=== PATIENT | female | born 2000 ===

== ENCOUNTER 2024-04-15 17:08 | Emergency (ER) | payer OTHER ==
[~2024-04-15] VITALS: Ht 165.1 cm; Wt 97.5 kg
[2024-04-15 18:13] VITALS: BP 116/58
--- OUTSIDE RECORDS SUMMARY | 2024-04-15 19:34 | XMS ---
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 No recent Security Events currently on file CRITERIA MET - [facility] - 2 Visits in 30 Days CARE PROVIDERS MALKA GRAY Community Health Worker 11/14/2020-Current PHONE: [phone] -, [facility] Dentist: Pipe Insulator Current [place] PHONE: [phone] -Dick- Dentist: Pipe Insulator Current [facility] PHONE: [phone] [facility] WORKERS CLINIC [facility] ([facility]) [facility] PHONE: [phone] Foster has no Care Guidelines for this patient. EJodyDJody VISIT COUNT (12 MO.) [address] [place] [address] [facility] [place] TOTAL 6 NOTE: Visits indicate total known visits. ED/UCC VISIT TRACKING (12 MO.) 04/15/2024 17:09 [facility] [place] TYPE: Emergency COMPLAINT: - ABDOMNIAL PAIN 2024 16:16 [facility] [place] TYPE: Emergency DIAGNOSES: - Other stimulant abuse, uncomplicated - Unspecified psychosis not due to a substance or known physiological condition - PSYCHOSIS 02/22/2024 02:42 [facility] [place] TYPE: Emergency DIAGNOSES: - Corneal disorder due to contact lens, right eye - FB IN EYE 01/30/2024 13:52 [email or web address] TYPE: Emergency DIAGNOSES: - Local infection of the skin and subcutaneous tissue, unspecified - Opioid abuse, uncomplicated - Other stimulant abuse, uncomplicated - OD 07/09/2023 23:57 [facility] OR TYPE: Emergency DIAGNOSES: - Strain of muscle, fascia and tendon of lower back, initial encounter - BACK PAIN 06/25/2023 20:45 [facility] [place] TYPE: Emergency DIAGNOSES: - Acute gastritis without bleeding - Tobacco use - Abdominal Pain, [place] INPATIENT VISIT TRACKING (12 MO.) No inpatient visits to display in this time frame [id number]
== END 2024-04-15 18:14 | disposition home or self-care (01) ==
LOC: ED 17:08
DX: Z02.89 Encounter for other administrative examinations (principal); R10.9 Unspecified abdominal pain; Z88.8 Allergy status to other drugs, medicaments and biological substances; Z88.6 Allergy status to analgesic agent
CPT/HCPCS: 84703; 99284

== ENCOUNTER 2024-05-10 20:06 | Emergency (ER) | payer OTHER ==
[~2024-05-10] VITALS: Ht 165.1 cm; Wt 94.3 kg
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
[2024-05-10] MEDS ORDERED: BRIXADI8 MG/0.16 (20:21)
[2024-05-10 20:56] LABS: BILIRUBIN, URINE NEGATIVE (negative); BLOOD/HGB, URINE NEGATIVE (Negative); KETONE, URINE NEGATIVE (Negative); LEUK ESTERASE, URINE NEGATIVE (negative); NITRITE, URINE NEGATIVE (negative); PH, URINE 5.5 (5-7)
[2024-05-10 20:57] LABS: HEMOGLOBIN 14.1 g/dL (12.0-18.0); RDW 15.6 (10.5-15.0)
[2024-05-10 20:59] LABS: BASOPHILS 0.7 % (0-2); EOSINOPHILS 0.7 % (0-6); HEMATOCRIT 42.2 % (35.0-50.0); MCH 28.2 (27-36); MCHC 33.5 g/dl (30-36); MCV 84.3 fl (81-99); MONOCYTES 4.6 % (0-12); PLATELET COUNT 271 K/uL (140-440)
[2024-05-10 21:11] LABS: ALBUMIN/GLOBULIN RATIO 1.05 (1.1-2.4); ANION GAP 12.4 (7-21); BILIRUBIN, TOTAL 0.9 ng/dL (0.2-1.0); BUN/CREATININE RATIO 11.49 (6.0-28.6); CALCIUM 9.3 mg/dL (8.5-10.1); CREATININE, SERUM 0.87 mg/dL (0.55-1.02); POTASSIUM 3.4 mmol/L (3.5-5.1); PROTEIN, TOTAL 7.8 g/dL (6.4-8.2)
[2024-05-10 21:12] LABS: AMPHETAMINES, URINE NEGATIVE (NEGATIVE); BARBITURATES, URINE NEGATIVE (NEGATIVE); BENZODIAZEPINE, URINE NEGATIVE (NEGATIVE); BUPRENORPHINE, URINE POSITIVE (NEGATIVE); CANNABINOID, URINE NEGATIVE (NEGATIVE); COCAINE, URINE NEGATIVE (NEGATIVE); ECSTASY, URINE NEGATIVE (NEGATIVE); FENTANYL, URINE POSITIVE (NEGATIVE); METHADONE, URINE NEGATIVE (NEGATIVE); OPIATES, URINE NEGATIVE (NEGATIVE); OXYCODONE, URINE NEGATIVE (NEGATIVE); PHENCYCLIDINE, URINE NEGATIVE (NEGATIVE)
[2024-05-10 22:24] LABS: N. GONORRRHOEAE BY PCR NOT DETECTED (NOT DETECT)
[2024-05-10 22:28] VITALS: BP 114/83
[2024-05-12 16:28] LABS: HEPATITIS B SURFACE ANTIBODY 91.65 IU/L (())
[2024-05-13 10:32] LABS: HIV 1,2 COMBO ANTIGEN/ANTIBODY Negative (Negative)
[2024-05-13 12:32] LABS: HEPATITIS BE ANTIBODY Negative (Negative)
== END 2024-05-10 22:30 | disposition home or self-care (01) ==
LOC: ED 20:06
PROVIDERS: Internal Medicine
DX: T76.21XA Adult sexual abuse, suspected, initial encounter (principal); Z88.6 Allergy status to analgesic agent; Z79.899 Other long term (current) drug therapy
CPT/HCPCS: 36415; 80053; 80307; 81003; 84703; 85025; 86706; 86707; 99284

== ENCOUNTER 2024-06-01 02:14 | Emergency (ER) | payer OTHER ==
[~2024-06-01] VITALS: Ht 165.1 cm; Wt 98.0 kg
[~2024-06-01 02:14] MED LIST: BRIXADI8 MG/0.16
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
[2024-06-01] MEDS ORDERED: ZYPREXA10 MG PO (02:59)
[2024-06-01] MEDS ORDERED: HALOPERIDOL LACTATE 5 MG/ML VIAL IM ONE ×2 (04:15→08:30)
[2024-06-01] MEDS ORDERED: diphenhydrAMINE HCL 50 MG/ML VIAL IM ONE ×2 (04:15→08:30)
[2024-06-01] MEDS ORDERED: LORazepam 2 MG/ML VIAL IM ONE ×2 (04:15→08:30)
[2024-06-01 04:25] LABS: BILIRUBIN, URINE POSITIVE (negative); BLOOD/HGB, URINE NEGATIVE (Negative); KETONE, URINE >=80 (Negative); LEUK ESTERASE, URINE NEGATIVE (negative); NITRITE, URINE NEGATIVE (negative); PH, URINE 5.5 (5-7)
[2024-06-01 04:32] LABS: BASOPHILS 0.6 % (0-2); EOSINOPHILS 0.7 % (0-6); HEMATOCRIT 40.8 % (35.0-50.0); HEMOGLOBIN 14.1 g/dL (12.0-18.0); MCH 29.1 (27-36); MCHC 34.5 g/dl (30-36); MCV 84.5 fl (81-99); MONOCYTES 7.2 % (0-12); NEUTROPHILS 48.5 % (39-80); PLATELET COUNT 314 K/uL (140-440); RBC 4.83 M/ul (4.3-5.7)
[2024-06-01 04:37] LABS: AMPHETAMINES, URINE NEGATIVE (NEGATIVE); BARBITURATES, URINE NEGATIVE (NEGATIVE); BENZODIAZEPINE, URINE NEGATIVE (NEGATIVE); BUPRENORPHINE, URINE POSITIVE (NEGATIVE); CANNABINOID, URINE NEGATIVE (NEGATIVE); COCAINE, URINE NEGATIVE (NEGATIVE); ECSTASY, URINE NEGATIVE (NEGATIVE); FENTANYL, URINE POSITIVE (NEGATIVE); METHADONE, URINE NEGATIVE (NEGATIVE); OPIATES, URINE NEGATIVE (NEGATIVE); OXYCODONE, URINE NEGATIVE (NEGATIVE); PHENCYCLIDINE, URINE NEGATIVE (NEGATIVE)
[2024-06-01 04:59] LABS: ACETAMINOPHEN 0 ug/mL (10-30); ALBUMIN 4.1 g/dL (3.4-5.0); ALCOHOL, MEDICAL <3 ng/dL (<3); ALKALINE PHOSPHATASE 58 U/L (46-116); ALT (SGPT) 16 U/L (14-59); ANION GAP 15.8 (7-21); AST (SGOT) 15 U/L (15-37); BUN/CREATININE RATIO 19.04 (6.0-28.6); CALCIUM 9.7 mg/dL (8.5-10.1); CARBON DIOXIDE 25 mmol/L (21-32); CHLORIDE 102 mmol/L (98-107); CREATININE, SERUM 0.84 mg/dL (0.55-1.02); GLOMERULAR FILTRATION RATE,EST 98 mL/min (>60); POTASSIUM 3.8 mmol/L (3.5-5.1); PROTEIN, TOTAL 8.2 g/dL (6.4-8.2); TSH, 3RD GENERATION 0.967 uIU/mL (0.358-3.740); UREA NITROGEN 16 mg/dL (7-18)
[2024-06-01 05:00] LABS: SALICYLATE <0.2 mg/dL (2.8-20.0)
[2024-06-01] MEDS ORDERED: OLANZapine 10 MG TABDIS PO SCH (09:00)
[2024-06-01] MEDS ORDERED: buprenorphine HCL 8 MG TAB.SUBL SL SCH (21:15)
[2024-06-04 13:31] LABS: CORONAVIRUS COVID-19 AG NEGATIVE (NEGATIVE); INFLUENZA A AG NEGATIVE (NEGATIVE); INFLUENZA B AG NEGATIVE (NEGATIVE)
--- NOTE | 2024-06-04 22:26 | EKG ---
[facility] [address] [facility] [place] [address] Signed Normal sinus rhythm Normal ECG No previous ECGs available Confirmed by Raffy Louis MD () on 06/04/2024 10:26:15 PM Electronically Signed By: RAFFY LOUIS MD 06/04/242225 PATIENT NAME: LITA WARREN Electrocardiogram DATE OF : 89 PHYSICIAN: RAFFY LOUIS MD REPORT #: [id number] REPORT IS CONFIDENTIAL AND NOT TO BE RELEASED WITHOUT AUTHORIZATION
[2024-06-05 08:43] VITALS: BP 110/97
== END 2024-06-05 08:51 ==
LOC: ED 02:14
PROVIDERS: Emergency Medicine; Family Medicine
DX: F22 Delusional disorders (principal); Z88.6 Allergy status to analgesic agent; Z79.899 Other long term (current) drug therapy
CPT/HCPCS: 36415; 80053; 80307; 81003; 84443; 84703; 85025; 96372; 99285; A9270; G0480; J1200; J1630; J2060

== ENCOUNTER 2024-06-15 07:27 | Emergency (ER) | payer OTHER ==
[~2024-06-15] VITALS: Ht 165.1 cm; Wt 98.0 kg
[~2024-06-15 07:27] MED LIST changes: +ZYPREXA10 MG PO
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
[2024-06-15 08:15] LABS: BASOPHILS 0.5 % (0-2); EOSINOPHILS 1.1 % (0-6); HEMATOCRIT 34.5 % (35.0-50.0); HEMOGLOBIN 11.8 g/dL (12.0-18.0); LYMPHOCYTES 28.9 % (24-44); MCH 28.5 (27-36); MCHC 34.1 g/dl (30-36); MCV 83.4 fl (81-99); MONOCYTES 7.2 % (0-12); NEUTROPHILS 62.3 % (39-80); PLATELET COUNT 284 K/uL (140-440); RBC 4.14 M/ul (4.3-5.7); RDW 14.2 (10.5-15.0)
[2024-06-15 08:42] LABS: ACETAMINOPHEN 0 ug/mL (10-30); ALBUMIN 3.5 g/dL (3.4-5.0); ALBUMIN/GLOBULIN RATIO 1.09 (1.1-2.4); ALCOHOL, MEDICAL <3 ng/dL (<3); ALKALINE PHOSPHATASE 58 U/L (46-116); ALT (SGPT) 18 U/L (14-59); ANION GAP 10.8 (7-21); AST (SGOT) 16 U/L (15-37); BILIRUBIN, TOTAL 1.3 mg/dL (0.2-1.0); BUN/CREATININE RATIO 17.14 (6.0-28.6); CALCIUM 9.1 mg/dL (8.5-10.1); CARBON DIOXIDE 29 mmol/L (21-32); CHLORIDE 104 mmol/L (98-107); GLOMERULAR FILTRATION RATE,EST 122 mL/min (>60); POTASSIUM 3.8 mmol/L (3.5-5.1); PROTEIN, TOTAL 6.7 g/dL (6.4-8.2); TSH, 3RD GENERATION 0.576 uIU/mL (0.358-3.740); UREA NITROGEN 12 mg/dL (7-18)
[2024-06-15 08:47] LABS: SALICYLATE <0.2 mg/dL (2.8-20.0)
[2024-06-15 14:26] LABS: BILIRUBIN, URINE POSITIVE (negative); BLOOD/HGB, URINE NEGATIVE (Negative); KETONE, URINE SMALL (Negative); LEUK ESTERASE, URINE TRACE (negative); NITRITE, URINE NEGATIVE (negative)
[2024-06-15 14:33] LABS: EPITHELIAL CELLS, URINE SQUAMOUS 4+ /lpf (0-1+)
[2024-06-15 14:35] LABS: RED BLOOD CELLS, URINE 0-1 /hpf (0-5)
[2024-06-15 14:36] LABS: BACTERIA, URINE 1+ /hpf (negative); CASTS, URINE NONE SEEN \\lpf; COLLECTION TYPE, URINE CLEAN CATCH; CRYSTALS, URINE NONE SEEN (0-1+); REFLEX CULTURE, URINE No (No)
[2024-06-15 14:38] LABS: AMPHETAMINES, URINE NEGATIVE (NEGATIVE); BARBITURATES, URINE NEGATIVE (NEGATIVE); BENZODIAZEPINE, URINE NEGATIVE (NEGATIVE); BUPRENORPHINE, URINE POSITIVE (NEGATIVE); CANNABINOID, URINE NEGATIVE (NEGATIVE); COCAINE, URINE NEGATIVE (NEGATIVE); ECSTASY, URINE NEGATIVE (NEGATIVE); FENTANYL, URINE POSITIVE (NEGATIVE); METHADONE, URINE NEGATIVE (NEGATIVE); OPIATES, URINE NEGATIVE (NEGATIVE); OXYCODONE, URINE NEGATIVE (NEGATIVE); PHENCYCLIDINE, URINE NEGATIVE (NEGATIVE)
[2024-06-16] MEDS ORDERED: buprenorphine HCL 8 MG TAB.SUBL SL ONE (07:00)
[2024-06-16] MEDS ORDERED: OLANZapine 10 MG TAB PO ONE (07:45)
[2024-06-16] MEDS ORDERED: buprenorphine HCL 8 MG TAB.SUBL SL SCH (14:00)
[2024-06-16] MEDS ORDERED: OLANZapine 10 MG TAB PO SCH (21:00)
[2024-06-17] MEDS ORDERED: buprenorphine HCL 8 MG TAB.SUBL SL SCH (07:00)
[2024-06-18 13:32] VITALS: BP 123/88
== END 2024-06-18 13:35 | disposition home or self-care (01) ==
LOC: ED 07:27
PROVIDERS: Emergency Medicine
DX: F29 Unspecified psychosis not due to a substance or known physiological condition (principal); Z02.89 Encounter for other administrative examinations; Z88.6 Allergy status to analgesic agent
CPT/HCPCS: 36415; 80053; 80307; 81001; 84443; 84703; 85025; 99284; A9270; G0480

== ENCOUNTER 2025-01-03 23:18 | Emergency (ER) | payer OTHER ==
[~2025-01-03] VITALS: Ht 165.1 cm; Wt 91.3 kg
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
[2025-01-04] MEDS ORDERED: CEFTRIAXONE SOD 500 MG VIAL IM ONE (00:15)
[2025-01-04] MEDS ORDERED: metroNIDAZOLE 500 MG HOME.PACK PO ONE (00:15)
[2025-01-04] MEDS ORDERED: DOXYCYCLINE HYCLATE 100 MG CAP PO ONE (00:15)
[2025-01-04] MEDS ORDERED: DOXYCYCLINE HYCLATE 100 MG HOME.PACK PO ONE (00:15)
[2025-01-04 00:30] LABS: BASOPHILS 0.5 % (0.1-1.2); EOSINOPHILS 1.1 % (0.7-5.8); LYMPHOCYTES 27.2 % (19.3-51.7); MCH 29.1 PG (25.6-32.2); MCHC 34.1 g/dL (32.2-35.5); MCV 85.2 fL (79.4-94.8); MONOCYTES 6.1 % (4.7-12.5); NEUTROPHILS 64.7 % (34.0-71.1); RBC 4.99 M/uL (3.93-5.22)
[2025-01-04 00:50] LABS: ALT (SGPT) 2375.0 U/L (14-59); AST (SGOT) 798.0 U/L (15-37); GLOMERULAR FILTRATION RATE,EST 36.0 mL/min (>60); PROTEIN, TOTAL 7.6 g/dL (6.4-8.2); UREA NITROGEN 30.0 mg/dL (7-18)
[2025-01-04 02:20] VITALS: BP 127/91
[2025-01-05 18:22] LABS: HEPATITIS B SURFACE ANTIBODY 139.27 IU/L (())
[2025-01-05 18:57] LABS: HEPATITIS BE ANTIBODY Negative (Negative)
== END 2025-01-04 02:20 | disposition home or self-care (01) ==
LOC: ED 23:18
PROVIDERS: Emergency Medicine
DX: T76.21XA Adult sexual abuse, suspected, initial encounter (principal); Z53.29 Procedure and treatment not carried out because of patient's decision for other reasons; Z88.6 Allergy status to analgesic agent
CPT/HCPCS: 36415; 80053; 84703; 85025; 86706; 86707; 96372; 99285; A9270; J0696